=== PATIENT | female | born 1995 ===

== ENCOUNTER 2017-07-28 16:15 | Emergency (ER) | payer OTHER ==
[2017-07-28 16:35] VITALS: BP 121/92
[2017-07-28] MEDS ORDERED: Albuterol/Ipratropium NEB.SOL* Albuterol 2.5 MG/Ipratropium 0.5 MG 3 ML INH ONE (17:53)
--- NOTE | 2017-07-28 17:53 | UC ---
Respiratory Complaint HPI - HPI Summary HPI Summary: Patient to urgent care today with chief complaint of chest cough and chest congestion for 1 week. She's been out of her inhalers she had one leftover prednisone which she took and she wasn't sure the milligrams of them denies fevers denies nausea vomiting diarrhea denies sinus pain and congestion - History of Current Complaint Chief Complaint: UCRespiratory Stated Complaint: RESPIRATORY COMPLAINT Time Seen by Provider: 07/28/17 17:38 Hx Obtained From: Patient Hx Last Menstrual Period: 07/08/2017 ?: No Onset/Duration: Gradual Onset, Lasting Days - 7, Still Present Timing: Constant Pain Intensity: 3 Pain Scale Used: 0-10 Numeric Character: Cough: Nonproductive Aggravating Factors: Nothing Alleviating Factors: Nothing Associated Signs And Symptoms: Positive: Negative - Allergies/Home Medications Allergies/Adverse Reactions: Allergies Allergy/AdvReac Type Severity Reaction Status Date / Time No Known Allergies Allergy Verified 07/28/17 16:36 Home Medications: Home Medications Guaifenesin/Dextromethorphan [Cough Syrup] 07/28/17 [History] PMH/Surg Hx/FS Hx/Imm Hx Previously Healthy: No Respiratory History: Asthma - Mild intermittent asthma - Surgical History Surgical History: None - Family History Known Family History: Positive: None - Social History Occupation: Student Lives: With Family Alcohol Use: Weekly Substance Use Type: None Smoking Status (MU): Never Smoked Tobacco Review of Systems Constitutional: Negative Skin: Negative Eyes: Negative ENT: Negative Respiratory: Shortness Of Breath, Cough Cardiovascular: Negative Gastrointestinal: Negative Genitourinary: Negative Motor: Negative Neurovascular: Negative Musculoskeletal: Negative Neurological: Negative Psychological: Negative Is Patient Immunocompromised?: No All Other Systems Reviewed And Are Negative: Yes Physical Exam Triage Information Reviewed: Yes Appearance: Well-Appearing, No Pain Distress, Well-Nourished Vital Signs: Initial Vital Signs Temp 98.5 F 07/28/17 16:30 Pulse 58 07/28/17 16:30 Resp 16 07/28/17 16:30 BP 121/92 07/28/17 16:30 Pulse Ox 99 07/28/17 16:30 Vital Signs Reviewed: Yes Eye Exam: Normal Eyes: Positive: Conjunctiva Clear ENT Exam: Normal ENT: Positive: Normal ENT inspection, Hearing grossly normal, Pharynx normal, TMs normal, Uvula midline. Negative: Nasal congestion, Nasal drainage, Tonsillar swelling, Tonsillar exudate, Trismus, Muffled voice, Hoarse voice, Dental tenderness, Sinus tenderness Dental Exam: Normal Neck exam: Normal Neck: Positive: 1 Respiratory Exam: Normal Respiratory: Positive: Chest non-tender, No respiratory distress, No accessory muscle use, Decreased breath sounds, Wheezing Cardiovascular Exam: Normal Cardiovascular: Positive: RRR, No Murmur, Pulses Normal, Brisk Capillary Refill Musculoskeletal Exam: Normal Musculoskeletal: Positive: Strength Intact, ROM Intact, No Edema Neurological Exam: Normal Neurological: Positive: Alert, Muscle Tone Normal Psychological Exam: Normal Skin Exam: Normal Diagnostic Evaluation - Laboratory O2 Sat by Pulse Oximetry: 99 Re-Evaluation - Re-Evaluation First Eval Change: Improved - Patient reports feeling better after nebulizer treatment. Patient has increased aeration and no wheeze. Respiratory Course/Dx - Course Course Of Treatment: Will start on a short course of prednisone refill her inhalers increase fluids okay to use Robitussin [id number]. Medicines for symptom relief will follow with PCP, referrals made when necessary - Differential Dx/Diagnosis Provider Diagnoses: Acute exacerbation of mild intermittent asthma Discharge - Sign-Out/Discharge Documenting (check all that apply): Discharge/Admit/Transfer - Discharge Plan Condition: Stable Disposition: HOME Prescriptions: Albuterol 2.5MG/3ML (0.083%)* [Ventolin 2.5 MG/3 ML NEB.DEVI*] 2.5 mg INH Q4H #1 box Albuterol HFA INHALER* [Ventolin HFA Inhaler*] 2 puff INH Q4H PRN #1 mdi PRN Reason: cough/chest tightness predniSONE TAB* [Deltasone TAB*] 20 mg PO DAILY #15 tab Patient Education Materials: Asthma (DC), Bronchospasm (ED) Referrals: [facility] [Outside] - 2 Weeks - Billing Disposition and Condition Condition: STABLE Disposition: HOME
== END 2017-07-28 19:00 | disposition home or self-care (01) ==
LOC: UCEAST 16:15
DX: J45.21 Mild intermittent asthma with (acute) exacerbation (principal)
CPT/HCPCS: 87651; 99202; A9270-GY; G0463

== ENCOUNTER 2017-07-31 13:50 | Emergency (ER) | payer OTHER ==
[2017-07-31 14:10] VITALS: BP 117/67
--- NOTE | 2017-07-31 14:50 | RAD ---
INDICATION: Cough with fever. Asthma. COMPARISON: No relevant prior exams available on the [facility] for comparison. TECHNIQUE: Dual energy PA and routine lateral views of the chest were obtained. REPORT: Clear lungs and pleural spaces. Negative for pneumothorax. The heart, pulmonary vasculature, and mediastinal contours are unremarkable. Unremarkable osseous structures and soft tissue contours. IMPRESSION: No evidence for acute intrathoracic disease.
--- NOTE | 2017-07-31 15:33 | UC ---
Respiratory Complaint HPI - HPI Summary HPI Summary: Patient is a 22-year-old female presenting to the for the second time in 3 days. She states she has been having fevers, sweats, chills. She has asthma and has been having daily asthma attacks. She is also given endorsing a cough with sputum production which is green in color. Endorses bilateral maxillary and frontal sinus pressure. Temperature was highest at 101.4. She has been taking Tylenol and ibuprofen for relief. She has not taken anything else over- the-counter. She was prescribed an inhaler as well as prednisone. Despite these medications, she continues to have symptoms. They are not worse or better but have been remained the same. She denies any known sick contacts. - History of Current Complaint Chief Complaint: UCRespiratory Stated Complaint: COUGH Time Seen by Provider: 07/31/17 14:19 Hx Obtained From: Patient Hx Last Menstrual Period: 07/10/17 ?: No Onset/Duration: Sudden Onset Timing: Constant Severity Initially: Moderate Severity Currently: Moderate Pain Intensity: 0 Pain Scale Used: 0-10 Numeric Character: Cough: Productive Associated Signs And Symptoms: Positive: URI, Nasal Congestion, Hoarseness, Sinus Discomfort - Risk Factors Pulmonary Embolism Risk Factors: Negative Cardiac Risk Factors: Negative Pseudomonas Risk Factors: Negative Tuberculosis Risk Factors: Negative - Allergies/Home Medications Allergies/Adverse Reactions: Allergies Allergy/AdvReac Type Severity Reaction Status Date / Time No Known Allergies Allergy Verified 07/31/17 14:10 PMH/Surg Hx/FS Hx/Imm Hx Previously Healthy: Yes - Surgical History Surgical History: None - Family History Known Family History: Positive: None - Social History Occupation: Employed Full-time Alcohol Use: Weekly Substance Use Type: None Smoking Status (MU): Never Smoked Tobacco Have You Smoked in the Last Year: No Review of Systems Constitutional: Fever, Chills, Fatigue Skin: Negative ENT: Nasal Discharge, Sinus Congestion, Sinus Pain/Tenderness Respiratory: Shortness Of Breath, Cough Cardiovascular: Negative Motor: Negative Neurovascular: Negative Psychological: Negative Is Patient Immunocompromised?: No All Other Systems Reviewed And Are Negative: Yes Physical Exam Triage Information Reviewed: Yes Appearance: Ill-Appearing Vital Signs: Initial Vital Signs Temp 99.4 F 07/31/17 14:04 Pulse 79 07/31/17 14:04 Resp 16 07/31/17 14:04 BP 117/67 07/31/17 14:04 Pulse Ox 97 07/31/17 14:04 Vital Signs Reviewed: Yes ENT: Positive: Pharynx normal, Nasal congestion, Nasal drainage, Dental tenderness, Sinus tenderness, Uvula midline. Negative: Tonsillar swelling, Tonsillar exudate, Hoarse voice Neck exam: Normal Neck: Positive: Supple, Enlarged Nodes @ - bilateral cervical anterior Respiratory: Positive: Wheezing Cardiovascular Exam: Normal Cardiovascular: Positive: RRR Musculoskeletal Exam: Normal Musculoskeletal: Positive: Strength Intact Neurological Exam: Normal Neurological: Positive: Alert Psychological: Positive: Normal Response To Family Skin Exam: Normal UC Diagnostic Evaluation - Laboratory O2 Sat by Pulse Oximetry: 97 Respiratory Course/Dx - Course Course Of Treatment: Patient is evaluated for persistent cough despite prednisone and inhaler. She has had fevers, sweats, chills, worse at night. Fever highest at 101.4. On arrival she is 99.6 and is not tachcardic. Patient sent for chest x-ray to rule out pneumonia although no rhonchorous sounds appreciated in the lung bases. Wheezing is diffuse throughout. She is diaphoretic on exam. Maxillary sinus pressure and tenderness as well as frontal sinus pressure and tenderness. Bilateral cervical anterior LAD. X-ray shows no signs of pneumonia or other acute cardiopulmonary disease. I have given her Augmentin for an acute sinusitis and Robitussin with codeine for at bedtime for cough. She will continue ibuprofen and Tylenol for any fevers aches or chills. She will return for any worsening or changing symptoms. - Differential Dx/Diagnosis Differential Diagnosis/HQI/PQRI: Sinusitis, Other - PNA, VIRAL ILLNESS Provider Diagnoses: sinusitis Discharge - Sign-Out/Discharge Documenting (check all that apply): Discharge/Admit/Transfer - Discharge Plan Condition: Stable Disposition: HOME Prescriptions: Amoxicillin/Clavulanate TAB* [Augmentin TAB 875*] 875 mg PO BID #14 tab guaiFENesin/CODIEN 100MG-10MG* [Robitussin AC 100Mg-10Mg*] 10 ml PO BEDTIME #60 udc MDD 10 Patient Education Materials: Sinusitis (ED) Referrals: No Primary Care Phys,NOPCP [Primary Care Provider] - Additional Instructions: Tylenol and ibuprofen intermittently for fevers Augmentin twice daily x 7 days Continue with steroid - Billing Disposition and Condition Condition: STABLE Disposition: HOME
== END 2017-07-31 15:03 | disposition home or self-care (01) ==
LOC: UCEAST 13:50
DX: J32.9 Chronic sinusitis, unspecified (principal); R50.9 Fever, unspecified; J45.909 Unspecified asthma, uncomplicated
CPT/HCPCS: 71046; 99212; G0463